=== PATIENT | male | born 1970 | race Hispanic/Latino ===

== ENCOUNTER → 2020-02-03 | Outpatient (CLI) | payer OTHER ==
[~2020-02-03] VITALS: Ht 170.2 cm; Wt 87.2 kg
[~2020-02-03] MED LIST: CEFAZOLIN SODIUM 1 GM VIAL IVP SCH; CEPH500B PO; GLUCOSAMINE PO; IBUP-2070 PO; IBUP-2077 PO; MELA10CA2 PO; MULT-1367 PO; OMEG100014 PO; TYL2 PO; UBID200C18 PO; ZZZQUIL PO; [UNRECOGNIZED DRUG - OTHER]
[2020-02-03 12:17] LABS: BASOPHILS % (AUTO) 0.7 % (0.0-5.0); EOSINOPHILS % (AUTO) 2.1 % (0.0-8.0); HEMATOCRIT 49.5 % (42-54); LYMPHOCYTES % (AUTO) 50.4 % (21.0-51.0); MEAN CORPUSCULAR HEMOGLOBIN 30.6 pg (27.0-33.0); MEAN CORPUSCULAR HGB CONC 33.7 g/dL (32.0-36.0); MEAN CORPUSCULAR VOLUME 90.7 fL (79-99); MONOCYTES % (AUTO) 9.6 % (3.0-13.0); NEUTROPHILS % (AUTO) 36.7 % (40.0-77.0); PLATELET COUNT (AUTO) 172 K/uL (130-400); RED BLOOD CELL COUNT(AUTO) 5.46 MIL/uL (4.50-6.20); WHITE BLOOD COUNT (AUTO) 5.7 K/uL (4.8-10.8)
[2020-02-03 12:44] LABS: POTASSIUM 4.9 mmol/L (3.5-5.1)
[2020-02-07 09:07] VITALS: BP 138/74
== END ==
LOC: LAB 11:23 → EDSTATUS 12:30 → EDSEX 02-08 12:30
PROVIDERS: ATTEND Orthopaedic Surgery
DX: Z01.818 Encounter for other preprocedural examination (principal); Z11.59 Encounter for screening for other viral diseases
CPT/HCPCS: 36415; 80048; 85025; U0003

== ENCOUNTER 2020-03-26 06:45 | Day surgery (SDC) | payer OTHER ==
[2020-03-21 11:15] LABS: POTASSIUM 4.7 mmol/L (3.5-5.1)
[2020-03-21 11:27] LABS: BASOPHILS % (AUTO) 1.2 % (0.0-5.0); HEMATOCRIT 46.6 % (42-54); LYMPHOCYTES % (AUTO) 48.8 % (21.0-51.0); MEAN CORPUSCULAR HEMOGLOBIN 30.9 pg (27.0-33.0); MEAN CORPUSCULAR HGB CONC 32.8 g/dL (32.0-36.0); MEAN CORPUSCULAR VOLUME 94.1 fL (79-99); MONOCYTES % (AUTO) 10.6 % (3.0-13.0); NEUTROPHILS % (AUTO) 36.1 % (40.0-77.0); PLATELET COUNT (AUTO) 178 K/uL (130-400); RED BLOOD CELL COUNT(AUTO) 4.95 MIL/uL (4.50-6.20); WHITE BLOOD COUNT (AUTO) 5.9 K/uL (4.8-10.8)
[2020-03-22 15:40] VITALS: BP 141/72
[~2020-03-26] VITALS: Ht 170.2 cm; Wt 89.8 kg
[2020-03-26] VITALS (16 sets, daily range): BP systolic 101–135; BP diastolic 49–83
[~2020-03-26 06:45] MED LIST changes: -CEFAZOLIN SODIUM 1 GM VIAL IVP SCH; -CEPH500B PO; -IBUP-2070 PO; -IBUP-2077 PO; -TYL2 PO; -[UNRECOGNIZED DRUG - OTHER]
--- NOTE | 2020-03-26 07:10 | NUR ---
POTENTIAL FOR INFECTION: SHAVED RIGHT KNEE / RIGHT LEG FOLLOWED BY WIPING WITH ARACELI: 2% CHLORHEXIDINE GLUCONATE CLOTH PATIENTS PRE-OP SKIN PREP PER [facility].
[2020-03-26] MEDS ORDERED: SUCCINYLCHOLINE CHLORIDE 20 MG/ML 10 ML VIAL ONE (08:04)
[2020-03-26] MEDS ORDERED: LIDOCAINE PF 2% 5ML ABBOJECT ONE (08:04)
[2020-03-26] MEDS ORDERED: MIDAZOLAM HCL 1 MG/ML 2ML VIAL ONE (08:05)
[2020-03-26] MEDS ORDERED: PROPOFOL 10 MG/ML 20ML VIAL IV ONE (08:05)
[2020-03-26] MEDS ORDERED: FENTANYL CITRATE PF 50 MCG/1 ML 2ML VIAL ONE (08:06)
[2020-03-26] MEDS ORDERED: LACTATED RINGERS 1000ML 1,000 ML IV ONE (08:09)
[2020-03-26] MEDS: CEFAZOLIN SODIUM 1 GM VIAL IVP ONE ×2 (08:19→08:55)
[2020-03-26] MEDS ORDERED: DEXAMETHASONE SOD PHOSPHATE 10MG/ML 1ML VIAL ONE (09:00)
[2020-03-26] MEDS ORDERED: ONDANSETRON HCL 4 MG/2 ML VIAL ONE (09:00)
[2020-03-26] MEDS ORDERED: PHENYLEPHRINE HCL 10 MG/ML 1ML VIAL IV ONE (09:01)
[2020-03-26] MEDS ORDERED: GLYCOPYRROLATE 1 MG/5 ML SYRINGE ONE (09:04)
[2020-03-26] MEDS ORDERED: TYL2 PO (09:46)
[2020-03-26] MEDS ORDERED: IBUP-2070 PO (09:46)
[2020-03-26] MEDS ORDERED: CEPH500B PO (09:46)
[2020-03-26] MEDS ORDERED: MEPERIDINE-PF 25 MG/ML SYG ONE (10:03)
[2020-03-26] MEDS ORDERED: KETOROLAC TROMETHAMINE 30MG/ML ONE (10:19)
== END 2020-03-26 11:40 | disposition home or self-care (01) ==
LOC: DAH 06:45
PROVIDERS: ATTEND Orthopaedic Surgery
DX: S83.241A Other tear of medial meniscus, current injury, right knee, initial encounter (principal); S83.521A Sprain of posterior cruciate ligament of right knee, initial encounter; M71.21 Synovial cyst of popliteal space [Baker], right knee; M25.461 Effusion, right knee; M67.51 Plica syndrome, right knee; M25.561 Pain in right knee; Z11.59 Encounter for screening for other viral diseases; Z79.01 Long term (current) use of anticoagulants; Z83.438 Family history of other disorder of lipoprotein metabolism and other lipidemia; Z82.49 Family history of ischemic heart disease and other diseases of the circulatory system; Z82.0 Family history of epilepsy and other diseases of the nervous system; Z87.891 Personal history of nicotine dependence; X58.XXXA Exposure to other specified factors, initial encounter; Y99.0 Civilian activity done for income or pay; Y92.89 Other specified places as the place of occurrence of the external cause; Z98.890 Other specified postprocedural states; Z79.899 Other long term (current) drug therapy
CPT/HCPCS: 29881; 36415; 80048; 85025; A4213; A4215; A4221; A4222; A4223; A4606; A4649 ×2; A4663; A4930; A5120; A6223; J0330; J0690; J1100; J1885; J2001; J2175; J2250; J2370; J2405; J2704; J3010; J3490; J7030; J7120; U0003

== ENCOUNTER → 2025-01-09 | Outpatient (CLI) | payer BC ==
[~2025-01-09] MED LIST changes: +CEPH500B PO; +IBUP-2070 PO; +MELA10CA11 PO; -MELA10CA2 PO; +TYL2 PO
--- NOTE | 2025-01-10 10:06 | HMCIMG ---
MR KNEE LEFT WO REASON: M06.4 Inflammatory polyarthropathy COMPARISON: None TECHNIQUE: Routine imaging protocol was performed in the sagittal, axial and coronal plane with T1, proton density, T2 and gradient recalled sequences. FINDINGS: Coronal images show cartilage loss in the medial joint compartment. There is attenuation of the free margin mid zone of the medial meniscus consistent with degenerative change. There are some subchondral sclerosis in the medial tibial condyle. Lateral meniscus appears intact and the lateral articular cartilage appears better preserved. There is moderate cartilage loss in the patellofemoral joint most marked in the medial facet. Cruciate and collateral ligaments appear intact. Quadriceps and patellar tendons appear normal. There are no other focal osseous lesions. There is no joint effusion. Stranding soft tissues are unremarkable. IMPRESSION: 1. Moderate marked osteoarthritis medial joint compartment, there are moderate changes in the patellofemoral joint. 2. No acute finding.
== END | disposition home or self-care (01) ==
LOC: RAH 10:57
PROVIDERS: ATTEND Family Medicine
DX: M17.12 Unilateral primary osteoarthritis, left knee (principal); M89.8X8 Other specified disorders of bone, other site; M06.4 Inflammatory polyarthropathy; M25.562 Pain in left knee
CPT/HCPCS: 73721